=== PATIENT | female | born 1945 | race Caucasian/White ===

== ENCOUNTER 2024-10-22 10:53 | Observation (INO) ==
--- NOTE | 2024-10-22 11:20 | Emergency Department Note ---
HPI - Abdominal Pain General Chief Complaint: Abdominal Pain Stated Complaint: constipation Time Seen by Provider: 10/22/24 11:11 Source: patient Mode of arrival: walk-in Limitations: no limitations History of Present Illness HPI narrative: This is a 79 year old female patient that presents to the ER with c/o diffuse abdominal pain with not able to have a BM in 9 days. Per patient she has tried multiple items for constipation without results. Patient denies any chest pain, back pain, SOB, numbness, tingling, weakness or N/V MD elicited complaint: abdominal pain Pertinent past history: constipation Onset (ago): day(s) (9) Pain Consistency: constant Location: diffuse Severity: mild Quality: aching Radiation: none Migration to: no migration Exacerbating factors: nothing Relieving factors: nothing Associated symptoms: nausea and constipation Related Data Home Medications Medication Instructions Recorded Confirmed albuterol sulfate 90 mcg/actuation 1 puff inhalation Q6H PRN 04/14/24 04/14/24 aerosol inhaler shortness of breath or wheezing ergocalciferol (vitamin D2) 1,250 1,250 mcg PO .WEEKLY 04/14/24 04/14/24 mcg (50,000 unit) capsule levothyroxine 100 mcg tablet 100 mcg PO DAILY 04/14/24 04/14/24 metoprolol succinate 25 mg 25 mg PO DAILY 04/14/24 04/14/24 tablet,extended release 24 hr simvastatin 20 mg tablet 20 mg PO DAILY 04/14/24 04/14/24 zolpidem 10 mg tablet 10 mg PO DAILY 04/14/24 04/14/24 Allergies Allergy/AdvReac Type Severity Reaction Status Date / Time denosumab (From Prolia) Allergy Verified 10/22/24 11:22 Sulfa (Sulfonamide Allergy Verified 10/22/24 11:22 Antibiotics) tramadol Allergy Verified 10/22/24 11:22 COVID-19 (SARS-CoV-2) AdvReac Severe Verified 10/22/24 11:22 vaccine, marisa Influenza Virus Vaccines AdvReac Severe Verified 10/22/24 11:22 vaccine adjuvant system, AdvReac Severe Verified 10/22/24 11:22 [id number] lipo (From Shingrix (PF)) varicella-zoster virus AdvReac Severe Verified 10/22/24 11:22 glycoprotein (From Shingrix (PF)) Review of Systems Status of ROS 10 or more systems reviewed and unremark able except as noted in history and below Constitutional Denies: fever, chills, change in weight, fatigue, malaise, night sweats or change in sleep pattern Eyes Denies: change in vision, blurry vision, blind spots, light sensitivity or eye discomfort Ears, nose, mouth, and throat Denies: throat pain, neck pain, throat swelling, difficulty swallowing, hoarseness, mouth pain or swelling of lips/tongue Cardiovascular Denies: chest pain, palpitations, edema, swelling of feet/ankles, lightheadedness, shortness of breath with exertion or shortness of breath when lying down Respiratory Denies: shortness of breath, cough, wheezing, stridor, pain on inspiration or change in phlegm color Gastrointestinal Reports: abdominal pain, nausea and constipation; Denies: vomiting, coffee grounds in vomit, heartburn, diarrhea, bloating, belching or excessive passing of gas Genitourinary Denies: painful urination, urinary frequency, urinary urgency, urinary incontinence, blood in urine or difficulty voiding Musculoskeletal Denies: back pain, neck pain, extremity pain, extremity swelling, joint pain, limited range of motion, joint swelling or muscle cramps Integumentary/Breast Denies: rash, itching, redness, skin pain, skin tenderness, skin swelling, sores, new lesion or changing lesion Neurological Denies: headache, numbness in extremities, weakness in extremities, lack of coordination or dizziness Psychiatric Denies: anxiety, mood swings, panic attacks, change in sleep pattern, hopelessness or loss of interest Endocrine Denies: excessive urination, excessive thirst, fatigue, cold intolerance or excessive sweating Hematologic/Lymphatic Denies: easy bruising or easy bleeding Allergic/Immunologic Denies: hives, throat swelling, tongue swelling, facial swelling, wheezing or itchy eyes PFSH PFS Medical History Hypothyroidism Kidney stones GERD (gastroesophageal reflux disease) Hypertension Hyperlipemia Presence of Watchman left atrial appendage closure device Atrial fibrillation Guillain Lester syndrome Surgical History H/O: hysterectomy Social History Smoking status: never smoker Within the past year, how often did you have a drink containing alcohol: never Within the past year, how often did you have six or more drinks on one occasion: never Score interpretation: A score less than 3 is consistent with normal alcohol consumption. Non-prescribed substance use: denies use What is your current living situation: I presently have a place to live Problems where you live: no known problems Feel stressed/tense/nervous/anxious/difficulty sleeping: not at all Due to disability, difficulty making decisions: No Exam Constitutional: normal general appearance, no apparent distress and average body habitus Vital Signs - 24 hr 10/22/24 11:00 Temperature 97.8 F Pulse Rate 97 H Respiratory Rate 18 Blood Pressure 116/89 Pulse Oximetry 96 Oxygen Delivery Me thod Room Air HENMT: normocephalic, head/scalp atraumatic, hearing grossly normal bilaterally, external ears normal, nasal mucous membranes normal, external nose normal, oral mucous membranes normal and oropharynx normal Eyes: PERRL, EOMs intact bilaterally, conjunctivae normal and no scleral icterus Neck/C-Spine: visual inspection normal and trachea midline Lymph: no lymphadenopathy noted Chest: inspection of chest normal Respiratory: breath sounds equal bilaterally, normal respiratory effort, clear to auscultation bilaterally, no wheezes, no rales, no retractions, no use of accessory muscles and chest percussion normal Cardiovascular: normal heart rate noted, regular rhythm noted, no gallop, no rub, no murmur, no JVD, no clicks, peripheral pulses 2+ throughout, no bruits noted and no additional abnormal heart sounds Gastrointestinal: abdomen normal to inspection, abdomen soft to palpation, tender to palpation (diffuse tenderness), nontender to percussion, nondistended, normoactive bowel sounds, no hepatosplenomegaly, no masses, no pulsatile mass, no ascites, no hernia and rectal exam abnormal (hemorrhoids) (internal) and (fecal impaction) (manually disimpacted received moderate hard stool. Patient tolerated without difficulty) Genitourinary: no CVA tenderness Back/Pelvis: spine normal to inspection Extremities: normal to inspection, normal to palpation, no tenderness, full ROM, no joint enlargement and no deformity Neurology: no movement abnormality noted, no focal motor deficit noted, no sensory deficits noted, speech normal, no fasciculations noted and GCS normal Psychiatry: mental status grossly normal, oriented x3, thought process normal, cooperative and affect normal Skin: skin color normal Course Course Hospital Course: 1458: patient unable to keep the soap suds enema in. spoke to Dr Malhotra about patient and she accepted her to the medical floor and wants patient to get 5 packs of Miralax on the medical floor and then a soap suds enema 4 hrs later. VSS, no s/s of acute distress noted Vital Signs Vital signs: Vital Signs Temperature 97.8 F 10/22/24 11:00 Pulse Rate 97 H 10/22/24 11:00 Respiratory Rate 18 10/22/24 11:00 Blood Pressure 116/89 10/22/24 11:00 Pulse Oximetry 96 10/22/24 11:00 Oxygen Delivery Method Room Air 10/22/24 11:00 Temperature 97.8 F 10/22/24 11:00 Pulse Rate 97 H 10/22/24 11:00 Respiratory Rate 18 10/22/24 11:00 Blood Pressure 116/89 10/22/24 11:00 Pulse Oximetry 96 10/22/24 11:00 Oxygen Delivery Method Room Air 10/22/24 11:00 MDM - Abdominal Pain Differential Diagnosis Differential diagnosis: Likely abdominal pain Medical Records Attestation: I reviewed the patient's medical records. Lab Data Attestation: I reviewed the patient's lab results. Labs: Lab Results 10/22/24 Range/Units 11:20 WBC 7.2 (4.3-9.3) K/uL RBC 4.5 (4.00-5.50) M/uL Hgb 13.7 (12.5-15.8) gm/dL Hct 39.8 (35.9-46.7) % MCV 87.9 (81.0-93.7) fl MCH 30.2 (27.6-32.2) pg MCHC 34.4 (33.1-35.3) g/dl RDW 13.7 (11.4-14.2) % Plt Count 274 (152-353) K/uL MPV 8.8 (6.9-10.8) fl Gran % 65.9 (47.8-71.3) % Lymph % (Auto) 22.9 (20.0-43.0) % [place] % (Auto) 10.0 H (3.6-9.8) % Eos % (Auto) 0.3 L (0.4-2.8) % Baso % (Auto) 0.9 H (0.1-0.85) Lymph # (Auto) 1.6 (1.1-3.1) [place] # (Auto) 0.7 L (1.1-3.1) Eos # (Auto) 0.0 (0.0-0.2) Baso # (Auto) 0.1 (0.0-0.1) Absolute Gran (auto) 4.7 (2.3-6.0) Sodium 133 L (136-145) mmol/L Potassium 3.3 L (3.6-5.2) mmol/L Chloride 95.0 L (98-107) mmol/L Carbon Dioxide 33 H (21-32) mmol/L Anion Gap 5.0 (4-14) mEq/L BUN 23 H (7-18) mg/dL Creatinine 0.7 (0.6-1.3) mg/dL Estimated GFR 89.0 (>59.9) Glucose 180 H (70-110) mg/dL Calcium 8.4 L (8.5-10.1) mg/dL Total Bilirubin 1.00 (0.0-1.0) mg/dL AST 10 L (15-37) U/L ALT 11 L (30-65) U/L Alkaline Phosphatase 149 H (50-136) U/L Troponin I High Sens 9.00 (4.0-60.4) ng/L Total Protein 7.1 (6.4-8.2) g/dL Albumin 3.8 (3.4-5.0) g/dL Lipase 26.0 (16.0-77.0) U/L Imaging Data Imaging ordered: CT scan - abdomen Attestation: I have reviewed the pertinent imaging results. ECG Data Attestation: I have reviewed the pertinent ECG results. Discharge Plan Discharge Patient Disposition: Admitted As Observation Condition: Stable Clinical Impression: Constipation, Fecal impaction Time of Disposition: 15:00
[2024-10-22] MEDS ORDERED: ONDANSETRON HCL/PF 4 MG/2 ML VIAL ONE (11:22)
[2024-10-22] MEDS: ONDANSETRON HCL/PF 4 MG/2 ML VIAL INJ STA (11:22)
[2024-10-22 11:28] LABS: Basophils #(Absolute) Auto 0.1 (0.0-0.1); Basophils%(Percent) Auto 0.9 (0.1-0.85); Eosinophils%(Percent) Auto 0.3 % (0.4-2.8); Granulocytes % - Auto 65.9 % (47.8-71.3); Granulocytes#(Absolute)- Auto 4.7 (2.3-6.0); Hematocrit 39.8 % (35.9-46.7); Mean Corpuscular Volume 87.9 fl (81.0-93.7); Monocytes #(Absolute)- Auto 0.7 (1.1-3.1); Platelet Count 274 K/uL (152-353); White Blood Count 7.2 K/uL (4.3-9.3)
[2024-10-22 11:38] LABS: Potassium 3.3 mmol/L (3.6-5.2)
[2024-10-22] MEDS ORDERED: POTASSIUM CHLORIDE 20 MEQ TAB.ER.PRT PO SCH (12:15)
[2024-10-22] MEDS ORDERED: POTASSIUM CHLORIDE 20 MEQ TAB.ER.PRT PO ONE (12:15)
[2024-10-22] MEDS: POTASSIUM CHLORIDE 20 MEQ TAB.ER.PRT PO ONE (12:17)
[2024-10-22] MEDS ORDERED: polyethylene glycoL 3350 17 GM POWD.PACK ONE (15:27)
[2024-10-22] MEDS: polyethylene glycoL 3350 17 GM POWD.PACK PO STA (15:29)
[2024-10-22] MEDS ORDERED: MAGNESIUM, ALUMINUM HYDROXIDE 30 ML ORAL.SUSP PO PRN (18:38)
[2024-10-22] MEDS ORDERED: bisacodyL 10 MG SUPP.RECT PR PRN (18:38)
[2024-10-22] MEDS: SIMVASTATIN 10 MG TABLET PO SCH (21:07)
[2024-10-22] MEDS: ZOLPIDEM TARTRATE 10 MG TABLET PO PRN (22:58)
[2024-10-23 02:11] LABS: Urine Appearance CLEAR (CLEAR); Urine Blood NEGATIVE (NEG - TRACE); Urine Color YELLOW (STRAW/YELL.); Urine Urobilinogen Normal (NORMAL)
[2024-10-23 06:58] LABS: Basophils%(Percent) Auto 0.6 (0.1-0.85); Eosinophils#(Absolute)Auto 0.1 (0.0-0.2); Eosinophils%(Percent) Auto 1.3 % (0.4-2.8); Granulocytes % - Auto 55.9 % (47.8-71.3); Granulocytes#(Absolute)- Auto 3.7 (2.3-6.0); Hematocrit 36.1 % (35.9-46.7); Monocytes #(Absolute)- Auto 0.7 (1.1-3.1); Monocytes %(Percent)- Auto 10.9 % (3.6-9.8); Platelet Count 251 K/uL (152-353); White Blood Count 6.7 K/uL (4.3-9.3)
[2024-10-23 07:15] LABS: Potassium 3.1 mmol/L (3.6-5.2)
[2024-10-23] MEDS ORDERED: POTASSIUM CHLORIDE IN WATER 10 MEQ/100 ML PIGGYBACK IV SCH (08:15)
[2024-10-23] MEDS: LEVOTHYROXINE SODIUM 100 MCG TABLET PO SCH (09:07)
[2024-10-23] MEDS: METOPROLOL SUCCINATE 25 MG TAB.ER.24H PO SCH (09:07)
[2024-10-23] MEDS: L. ACIDOPHILUS/L.BULGARICU 1 GM GRAN.PACK PO SCH (09:07)
[2024-10-23] MEDS: polyethylene glycoL 3350 17 GM POWD.PACK PO SCH (09:07)
[2024-10-23] MEDS: PANTOPRAZOLE SODIUM 40 MG TABLET.DR PO SCH (09:07)
[2024-10-23] MEDS: ENOXAPARIN SODIUM 40 MG/0.4 ML SYRINGE SUBQ SCH (09:07)
[2024-10-23] MEDS: POTASSIUM CHLORIDE 20 MEQ TAB.ER.PRT PO ONE (09:08)
[2024-10-23] MEDS: POTASSIUM CL 20 MEQ/100 ML SOL 20 MEQ/100 ML PIGGYBACK IV ONE (09:23)
[2024-10-23] MEDS: HYDROCORTISONE ACETATE 25 MG SUPP.RECT PR SCH (13:30)
[2024-10-23] MEDS: 0.9 % SODIUM CHLORIDE 250 ML IV ONE (13:32)
--- NOTE | 2024-10-23 13:59 | Short Stay Summary ---
H&P: HPI History of Present Illness Chief complaint: constipation Narrative: This is a 79 year old female patient that presents to the ER with c/o diffuse abdominal pain with not able to have a BM in 9 days. Per patient she has tried multiple items for constipation without results. Patient denies any chest pain, back pain, SOB, numbness, tingling, weakness or N/V. Admitted patient to med/surg for further observation and treatment. Review of Systems Status of ROS 10 or more systems reviewed and unremark able except as noted in history and below Constitutional Denies: fever, chills, change in weight, fatigue, malaise, night sweats or change in sleep pattern Eyes Denies: change in vision, blurry vision, blind spots, light sensitivity or eye discomfort Ears, nose, mouth, and throat Denies: throat pain, neck pain, throat swelling, difficulty swallowing, hoarseness, mouth pain or swelling of lips/tongue Cardiovascular Denies: chest pain, palpitations, edema, swelling of feet/ankles, lightheadedness, shortness of breath with exertion or shortness of breath when lying down Respiratory Denies: shortness of breath, cough, wheezing, stridor, pain on inspiration or change in phlegm color Gastrointestinal Reports: abdominal pain, nausea and constipation; Denies: vomiting, coffee grounds in vomit, heartburn, diarrhea, bloating, belching, excessive passing of gas or difficulty swallowing Genitourinary Denies: painful urination, urinary frequency, urinary urgency, urinary incontinence, blood in urine or difficulty voiding Musculoskeletal Denies: back pain, neck pain, extremity pain, extremity swelling, joint pain, limited range of motion, joint swelling or muscle cramps Integumentary/Breast Denies: rash, itching, redness, skin pain, skin tenderness, skin swelling, sores, new lesion or changing lesion Neurological Reports: behavioral changes and difficulty communicating thoughts; Denies: headache, numbness in extremities, weakness in extremities, lack of coordination, dizziness, vertigo, confusion or slurred speech Psychiatric Denies: anxiety, mood swings, panic attacks, change in sleep pattern, hopelessness or loss of interest Endocrine Denies: excessive urination, excessive thirst, fatigue, cold intolerance or excessive sweating Hematologic/Lymphatic Denies: easy bruising, easy bleeding or enlarged lymph nodes Allergic/Immunologic Denies: hives, throat swelling, tongue swelling, facial swelling, wheezing or itchy eyes PFSH PFSH Medical History (Updated 10/23/24 @ 15:21 by Meagan Malhotra DO) Hypothyroidism Kidney stones GERD (gastroesophageal reflux disease) Hypertension Hyperlipemia Presence of Watchman left atrial appendage closure device Atrial fibrillation Guillain Lester syndrome Surgical History H/O: hysterectomy Social History Smoking status: never smoker Within the past year, how often did you have a drink containing alcohol: never Within the past year, how often did you have six or more drinks on one occasion: never Score interpretation: A score less than 3 is consistent with normal alcohol consumption. Non-prescribed substance use: denies use What is your current living situation: I presently have a place to live Problems where you live: no known problems Highest level of school completed/degree received: College Feel stressed/tense/nervous/anxious/difficulty sleeping: not at all Due to disability, difficulty making decisions: No Meds Home Medications and Allergies Home Medications Medication Instructions Recorded Confirmed Type albuterol sulfate 90 mcg/actuation 1 puff inhalation Q6H PRN 04/14/24 04/14/24 History aerosol inhaler shortness of breath or wheezing ergocalciferol (vitamin D2) 1,250 1,250 mcg PO .WEEKLY 04/14/24 04/14/24 History mcg (50,000 unit) capsule levothyroxine 100 mcg tablet 100 mcg PO DAILY 04/14/24 04/14/24 History metoprolol succinate 25 mg 25 mg PO DAILY 04/14/24 04/14/24 History tablet,extended release 24 hr simvastatin 20 mg tablet 20 mg PO DAILY 04/14/24 04/14/24 History zolpidem 10 mg tablet 10 mg PO DAILY 04/14/24 04/14/24 History Allergies Allergy/AdvReac Type Severity Reaction Status Date / Time denosumab (From Prolia) Allergy Verified 10/22/24 11:22 Sulfa (Sulfonamide Allergy Verified 10/22/24 11:22 Antibiotics) tramadol Allergy Verified 10/22/24 11:22 COVID-19 (SARS-CoV-2) AdvReac Severe Verified 10/22/24 11:22 vaccine, marisa Influenza Virus Vaccines AdvReac Severe Verified 10/22/24 11:22 vaccine adjuvant system, AdvReac Severe Verified 10/22/24 11:22 [id number] lipo (From Shingrix (PF)) varicella-zoster virus AdvReac Severe Verified 10/22/24 11:22 glycoprotein (From Shingrix (PF)) Exam Exam: Patient in low lutz's position upon entering room for exam. Constitutional: normal general appearance, no apparent distress, average body habitus, limitations noted (physical limitations) and alert Vital Signs - 24 hr 10/22/24 15:00 10/22/24 16:24 10/22/24 18:00 Temperature 97.8 F Pulse Rate 93 H 84 Pulse Rate [Bilate ral] Respiratory Rate 18 18 Blood Pressure 136/88 144/86 Blood Pressure [Ri ght Arm] Pulse Oximetry 98 98 Oxygen Delivery Me thod Room Air Room Air 10/22/24 20:00 10/22/24 23:44 10/23/24 03:43 Temperature 99.9 F H 97.9 F 98.4 F Pulse Rate Pulse Rate [Bilate ral] 74 81 87 Respiratory Rate 22 19 18 Blood Pressure Blood Pressure [Ri ght Arm] 139/54 136/55 118/64 Pulse Oximetry 93 L 94 L 93 L Oxygen Delivery Me thod Room Air Room Air Room Air 10/23/24 08:00 10/23/24 12:00 Temperature 98.3 F 98.2 F Pulse Rate Pulse Rate [Bilate ral] 81 85 Respiratory Rate 19 19 Blood Pressure Blood Pressure [Ri ght Arm] 148/67 107/64 Pulse Oximetry 95 93 L Oxygen Delivery Me thod Nasal Cannula Room Air HENMT: normocephalic, head/scalp atraumatic, hearing grossly normal bilaterally, external ears normal, nasal mucous membranes normal, external nose normal, oral mucous membranes normal and oropharynx normal Eyes: PERRL, EOMs intact bilaterally, conjunctivae normal and no scleral icterus Neck/C-Spine: visual inspection normal and trachea midline Lymph: no lymphadenopathy noted Chest: inspection of chest normal Respiratory: breath sounds equal bilaterally, normal respiratory effort, clear to auscultation bilaterally, no wheezes, no rales, no retractions, no use of accessory muscles and chest percussion normal Cardiovascular: normal heart rate noted, regular rhythm noted, no gallop, no rub, no murmur, no JVD, no clicks, peripheral pulses 2+ throughout, no bruits noted and no additional abnormal heart sounds Gastrointestinal: abdomen normal to inspection, abdomen soft to palpation, nontender to palpation, nontender to percussion, nondistended, normoactive bowel sounds, no hepatosplenomegaly, no masses, no pulsatile mass, no ascites, no h ernia and rectal exam abnormal (hemorrhoids) (internal) and (anal fissures) Genitourinary: no CVA tenderness Back/Pelvis: spine normal to inspection Extremities: normal to inspection, normal to palpation, no tenderness, full ROM, no joint enlargement and no deformity Neurology: no movement abnormality noted, no focal motor deficit noted, no sensory deficits noted, speech normal, no fasciculations noted and GCS normal Psychiatry: mental status grossly normal, oriented x3, thought process normal, cooperative and affect normal Skin: skin color normal and skin turgor normal Assessment and Plan Assessment and Plan (1) Fecal impaction: Code(s): K56.41 - Fecal impaction (2) Abdominal pain: Qualifiers: Abdominal location: lower abdomen, unspecified Qualified Code(s): R10.30 - Lower abdominal pain, unspecified Code(s): R10.9 - Unspecified abdominal pain (3) Constipation: Qualifiers: Constipation type: unspecified constipation type Qualified Code(s): K59.00 - Constipation, unspecified Code(s): K59.00 - Constipation, unspecified (4) Bowel obstruction: Qualifiers: Intestinal obstruction type: fecal impaction Qualified Code(s): K56.41 - Fecal impaction Code(s): K56.609 - Unspecified intestinal obstruction, unspecified as to partial versus complete obstruction (5) Anal fissure: Code(s): K60.2 - Anal fissure, unspecified (6) Hypertension: Qualifiers: Hypertension type: primary hypertension Qualified Code(s): I10 - Essential (primary) hypertension Code(s): I10 - Essential (primary) hypertension (7) GERD (gastroesophageal reflux disease): Qualifiers: Esophagitis presence: with esophagitis Esophagitis bleeding: without hemorrhage Qualified Code(s): K21.00 - Gastro-esophageal reflux disease with esophagitis, without bleeding Code(s): K21.9 - Gastro-esophageal reflux disease without esophagitis (8) Kidney stones: Code(s): N20.0 - Calculus of kidney (9) Hypothyroidism: Qualifiers: Hypothyroidism type: acquired Qualified Code(s): E03.9 - Hypothyroidism, unspecified Code(s): E03.9 - Hypothyroidism, unspecified (10) Atrial fibrillation: Qualifiers: Atrial fibrillation type: paroxysmal Qualified Code(s): I48.0 - Paroxysmal atrial fibrillation Code(s): I48.91 - Unspecified atrial fibrillation (11) 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 (12) Hyperlipemia: Qualifiers: Hyperlipidemia type: mixed hyperlipidemia Qualified Code(s): E78.2 - Mixed hyperlipidemia Code(s): E78.5 - Hyperlipidemia, unspecified Plan Levothyroxine Sodium 100 mcg PO DAILY Metoprolol Succinate 25 mg PO DAILY Simvastatin 20 mg PO BEDTIME Enoxaparin Sodium 40 mg PO DAILY Pantoprazole Sodium 40 mg PO DAILY Lactobacillus Acidophilus 1 gm PO DAILY Polyethylene Glycol 17 gm PO DAILY Hydrocortisone Acetate 25 mg TN Q6H Zolpidem Tartrate 10 mg PO BEDTIME PRN Acetaminophen 500 mg PO Q6H PRN Magnesium Hydroxide 30 ml PO DAILY PRN Bisacodyl 10 mg TN DAILY PRN Discharge home for self care tomorrow if she continues to have BM's without any issues Results Labs Labs: CBC 10/23/24 Range/Units 06:33 WBC 6.7 (4.3-9.3) K/uL RBC 4.1 (4.00-5.50) M/uL Hgb 12.6 (12.5-15.8) gm/dL Hct 36.1 (35.9-46.7) % Plt Count 251 (152-353) K/uL Gran % 55.9 (47.8-71.3) % Lymph % (Auto) 31.3 (20.0-43.0) % [place] % (Auto) 10.9 H (3.6-9.8) % Eos % (Auto) 1.3 (0.4-2.8) % Baso % (Auto) 0.6 (0.1-0.85) Lymph # (Auto) 2.1 (1.1-3.1) [place] # (Auto) 0.7 L (1.1-3.1) Eos # (Auto) 0.1 (0.0-0.2) Baso # (Auto) 0.0 (0.0-0.1) Absolute Gran (auto) 3.7 (2.3-6.0) CMP 10/23/24 06:33 Sodium 134 L Potassium 3.1 L Chloride 97.0 L Carbon Dioxide 29 BUN 16 Creatinine 0.6 Glucose 133 H Calcium 8.5 Liver Function 10/23/24 Range/Units 06:33 Total Bilirubin 0.99 (0.0-1.0) mg/dL AST 14 L (15-37) U/L ALT 14 L (30-65) U/L Alkaline Phosphatase 124 (50-136) U/L Albumin 3.5 (3.4-5.0) g/dL Urine 10/22/24 00:45 Urine Color Yellow Urine Appearance Clear Ur Specific [place] 1.010 Urine Protein Negative Urine Glucose (UA) Normal Pulse Oximetry Attestation: I have reviewed the pertinent pulse oximetry results. ECG Attestation: I have reviewed the pertinent ECG results. Prior ECG tracings: available for review Imaging Imaging ordered: CT scan - abdomen Radiologist's impression: CT ABDOMEN AND PELVIS WITH CONTRAST Date of Service: 10/22/24 HISTORY: abdomen pain, constipation; COMPARISON: CT dated 04/14/2024. TECHNIQUE: Axial CT images were obtained through the abdomen and pelvis after the intravenous administration of contrast. Coronal and sagittal reformatted images were included. Informed written consent was obtained prior to contrast administration. All CT scans at this facility use dose modulation, iterative reconstruction, and/or weight based dosing when appropriate to reduce radiation dose to as low as reasonably achievable. FINDINGS: Clear lung bases. Unremarkable liver, gallbladder, spleen, and adrenals. Atrophic pancreas. No biliary dilatation. Kidneys enhance symmetrically and there is no hydronephrosis or perinephric stranding. Moderate aortoiliac atherosclerosis without aneurysm. No abnormally distended small bowel loops or evidence of obstruction. Moderate formed stool throughout the sigmoid colon and rectum with fluid throughout the proximal colon. Chronic pelvic floor insufficiency with rectal and vaginal prolapse. Nondistended urinary bladder. No free pelvic fluid. No acute osseous findings. Osteopenia. Mild lumbar spondylosis. IMPRESSION: 1. Moderate sigmoid colon and rectal stool burden. Proximal colon is fluid- filled. No abnormally distended bowel loops or evidence of obstruction. 2. Chronic pelvic floor insufficiency with rectal and vaginal prolapse. DS: Providers Provider Date of admission: 10/22/24 17:24 Primary care physician: HOWIE Villasenor Admitting clinician: Verna Eaton Attending physician on admission: Meagan Malhotra Attending physician on discharge: Meagan Malhotra Discharging clinician: Meagan Malhotra Anticipated date of discharge: 10/23/24 DS: Summary Hospital Course Hospital Course: This is a 79 year old female patient that presents to the ER with c/o diffuse abdominal pain with not able to have a BM in 9 days. Per patient she has tried m ultiple items for constipation without results. Patient denies any chest pain, back pain, SOB, numbness, tingling, weakness or N/V. Admitted patient to med/surg for further observation and treatment. Patient received a manual disimpaction while in ER. Patient was able to have 3 bowel movements since being admitted to the floor. Patient reports she is feeling so much better and no in any abdominal pain. Patient states she feels some discomfort in rectum. After physical exam, patient was found to have an anal fissure. Orders were started for treatment. Patient is ready to discharge home for self care. Follow up appointment with PCP in 5-7 days of discharge. Status at Discharge Overall status at discharge: patient is back to baseline Time Spent with Patient Time attestation: Total time spent providing and/or coordinating discharge services: Discharge Plan Discharge Condition: Stable Discharge Medications: No Action albuterol sulfate 90 mcg/actuation HFA aerosol inhaler 1 puff INHALATION Q6H PRN (Reason: shortness of breath or wheezing) Patient Comments: INHALE ONE PUFF BY MOUTH EVERY 4 TO 6 HOURS ergocalciferol (vitamin D2) 1,250 mcg (50,000 unit) capsule 1,250 mcg PO .WEEKLY Patient Comments: TAKE ONE CAPSULE BY MOUTH EVERY WEEK levothyroxine 100 mcg tablet 100 mcg PO DAILY Patient Comments: Take 1 tablet by mouth every morning with water at least 30 to 60 minutes before any other medication, food, or drink. metoprolol succinate 25 mg tablet extended release 24 hr 25 mg PO DAILY Patient Comments: TAKE ONE TABLET BY MOUTH EVERY DAY simvastatin 20 mg tablet 20 mg PO DAILY Patient Comments: TAKE ONE TABLET BY MOUTH EVERY EVENING zolpidem 10 mg tablet 10 mg PO DAILY Patient Comments: TAKE ONE TABLET BY MOUTH AT BEDTIME NEEDED Hospital Course: This is a 79 year old female patient that presents to the ER with c/o diffuse abdominal pain with not able to have a BM in 9 days. Per patient she has tried multiple items for constipation without results. Patient denies any chest pain, back pain, SOB, numbness, tingling, weakness or N/V. Admitted patient to med/surg for further observation and treatment. Patient received a manual disimpaction while in ER. Patient was able to have 3 bowel movements since being admitted to the floor. Patient reports she is feeling so much better and no in any abdominal pain. Patient states she feels some discomfort in rectum. After physical exam, patient was found to have an anal fissure. Orders were started for treatment. Patient is ready to discharge home for self care. Follow up appointment with PCP in 5-7 days of discharge. Print Language: Ivorian Follow-Ups: Leoncio South PA [Primary Care Provider] - 10/30/24 1:45 pm
[2024-10-23] MEDS: polyethylene glycoL 3350 17 GM POWD.PACK PO ONE (18:42)
[2024-10-23] MEDS: ACETAMINOPHEN 500 MG TABLET PO PRN (20:36)
[2024-10-24 05:16] LABS: Basophils #(Absolute) Auto 0.1 (0.0-0.1); Basophils%(Percent) Auto 0.9 (0.1-0.85); Eosinophils#(Absolute)Auto 0.1 (0.0-0.2); Eosinophils%(Percent) Auto 1.4 % (0.4-2.8); Granulocytes % - Auto 55.2 % (47.8-71.3); Granulocytes#(Absolute)- Auto 3.4 (2.3-6.0); Hematocrit 35.1 % (35.9-46.7); Monocytes #(Absolute)- Auto 0.6 (1.1-3.1); Monocytes %(Percent)- Auto 10.2 % (3.6-9.8); Platelet Count 226 K/uL (152-353); White Blood Count 6.1 K/uL (4.3-9.3)
[2024-10-24 07:47] LABS: Potassium 3.8 mmol/L (3.6-5.2)
[2024-10-24 08:33] VITALS: BP 119/65; PULSE 71; RESP 20; TEMP 97.6
--- NOTE | 2024-10-24 11:01 | Progress Note ---
Progress Note: Subjective Subjective Interval history: Patient ready for discharge home this a.m. as expected. Exam Exam: Patient in low lutz's position upon entering room for exam. Constitutional: normal general appearance, no apparent distress, average body habitus, limitations noted (physical limitations) and alert Vital Signs - 24 hr 10/23/24 12:00 10/23/24 16:00 10/23/24 19:32 Temperature 98.2 F 97.7 F 97.9 F Pulse Rate [Bilate ral] 85 74 74 Respiratory Rate 19 19 18 Blood Pressure [Ri ght Arm] 107/64 124/57 101/76 Pulse Oximetry 93 L 93 L 94 L Oxygen Delivery Me thod Room Air Room Air Room Air 10/23/24 23:41 10/24/24 04:00 10/24/24 08:00 Temperature 98.2 F 97.9 F 97.6 F Pulse Rate [Bilate ral] 76 79 71 Respiratory Rate 18 18 20 Blood Pressure [Ri ght Arm] 129/58 136/62 119/65 Pulse Oximetry 97 95 94 L Oxygen Delivery Me thod Room Air Room Air Room Air HENMT: normocephalic, head/scalp atraumatic, hearing grossly normal bilaterally, external ears normal, nasal mucous membranes normal, external nose normal, oral mucous membranes normal and oropharynx normal Eyes: PERRL, EOMs intact bilaterally, conjunctivae normal and no scleral icterus Neck/C-Spine: visual inspection normal and trachea midline Lymph: no lymphadenopathy noted Chest: inspection of chest normal Respiratory: breath sounds equal bilaterally, normal respiratory effort, clear to auscultation bilaterally, no wheezes, no rales, no retractions, no use of accessory muscles and chest percussion normal Cardiovascular: normal heart rate noted, regular rhythm noted, no gallop, no rub, no murmur, no JVD, no clicks, peripheral pulses 2+ throughout, no bruits noted and no additional abnormal heart sounds Gastrointestinal: abdomen normal to inspection, abdomen soft to palpation, nontender to palpation, nontender to percussion, nondistended, normoactive bowel sounds, no hepatosplenomegaly, no masses, no pulsatile mass, no ascites, no hernia and rectal exam abnormal (hemorrhoids) (internal) and (anal fissures) Genitourinary: no CVA tenderness Back/Pelvis: spine normal to inspection Extremities: normal to inspection, normal to palpation, no tenderness, full ROM, no joint enlargement and no deformity Neurology: no movement abnormality noted, no focal motor deficit noted, no sensory deficits noted, speech normal, no fasciculations noted and GCS normal Psychiatry: mental status grossly normal, oriented x3, thought process normal, cooperative and affect normal Skin: skin color normal and skin turgor normal Progress Note: Objective Labs Labs: CBC 10/24/24 Range/Units 05:15 WBC 6.1 (4.3-9.3) K/uL RBC 4.0 (4.00-5.50) M/uL Hgb 12.3 L (12.5-15.8) gm/dL Hct 35.1 L (35.9-46.7) % Plt Count 226 (152-353) K/uL Gran % 55.2 (47.8-71.3) % Lymph % (Auto) 32.3 (20.0-43.0) % [place] % (Auto) 10.2 H (3.6-9.8) % Eos % (Auto) 1.4 (0.4-2.8) % Baso % (Auto) 0.9 H (0.1-0.85) Lymph # (Auto) 2.0 (1.1-3.1) [place] # (Auto) 0.6 L (1.1-3.1) Eos # (Auto) 0.1 (0.0-0.2) Baso # (Auto) 0.1 (0.0-0.1) Absolute Gran (auto) 3.4 (2.3-6.0) CMP 10/24/24 05:15 Sodium 134 L Potassium 3.8 Chloride 101.0 Carbon Dioxide 27 BUN 16 Creatinine 0.6 Glucose 134 H Calcium 8.5 Liver Function 10/24/24 Range/Units 05:15 Total Bilirubin 0.73 (0.0-1.0) mg/dL AST 13 L (15-37) U/L ALT 14 L (30-65) U/L Alkaline Phosphatase 140 H (50-136) U/L Albumin 3.2 L (3.4-5.0) g/dL Urine 10/22/24 00:45 Urine Color Yellow Urine Appearance Clear Ur Specific [place] 1.010 Urine Protein Negative Urine Glucose (UA) Normal Imaging CT scan - abdomen: Radiologist's impression: CT ABDOMEN AND PELVIS WITH CONTRAST Date of Service: 10/22/24 HISTORY: abdomen pain, constipation; COMPARISON: CT dated 04/14/2024. TECHNIQUE: Axial CT images were obtained through the abdomen and pelvis after the intravenous administration of contrast. Coronal and sagittal reformatted images were included. Informed written consent was obtained prior to contrast administration. All CT scans at this facility use dose modulation, iterative reconstruction, and/or weight based dosing when appropriate to reduce radiation dose to as low as reasonably achievable. FINDINGS: Clear lung bases. Unremarkable liver, gallbladder, spleen, and adrenals. Atrophic pancreas. No biliary dilatation. Kidneys enhance symmetrically and there is no hydronephrosis or perinephric stranding. Moderate aortoiliac atherosclerosis without aneurysm. No abnormally distended small bowel loops or evidence of obstruction. Moderate formed stool throughout the sigmoid colon and rectum with fluid throughout the proximal colon. Chronic pelvic floor insufficiency with rectal and vaginal prolapse. Nondistended urinary bladder. No free pelvic fluid. No acute osseous findings. Osteopenia. Mild lumbar spondylosis. IMPRESSION: 1. Moderate sigmoid colon and rectal stool burden. Proximal colon is fluid- filled. No abnormally distended bowel loops or evidence of obstruction. 2. Chronic pelvic floor insufficiency with rectal and vaginal prolapse. Progress Note: A&P Assessment and Plan (1) Fecal impaction: (2) Abdominal pain: Qualifiers: Abdominal location: lower abdomen, unspecified Qualified Code(s): R10.30 - Lower abdominal pain, unspecified (3) Constipation: Qualifiers: Constipation type: unspecified constipation type Qualified Code(s): K59.00 - Constipation, unspecified (4) Bowel obstruction: Qualifiers: Intestinal obstruction type: fecal impaction Qualified Code(s): K56.41 - Fecal impaction (5) Anal fissure: (6) Hypertension: Qualifiers: Hypertension type: primary hypertension Qualified Code(s): I10 - Essential (primary) hypertension (7) GERD (gastroesophageal reflux disease): Qualifiers: Esophagitis bleeding: without hemorrhage Esophagitis presence: with esophagitis Qualified Code(s): K21.00 - Gastro-esophageal reflux disease with esophagitis, without bleeding (8) Kidney stones: (9) Hypothyroidism: Qualifiers: Hypothyroidism type: acquired Qualified Code(s): E03.9 - Hypothyroidism, unspecified (10) Atrial fibrillation: Qualifiers: Atrial fibrillation type: paroxysmal Qualified Code(s): I48.0 - Paroxysmal atrial fibrillation (11) Guillain Lester syndrome: (12) Hyperlipemia: Qualifiers: Hyperlipidemia type: mixed hyperlipidemia Qualified Code(s): E78.2 - Mixed hyperlipidemia Plan Levothyroxine Sodium 100 mcg PO DAILY Metoprolol Succinate 25 mg PO DAILY Simvastatin 20 mg PO BEDTIME Enoxaparin Sodium 40 mg PO DAILY Pantoprazole Sodium 40 mg PO DAILY Lactobacillus Acidophilus 1 gm PO DAILY Polyethylene Glycol 17 gm PO DAILY Hydrocortisone Acetate 25 mg DC Q6H Zolpidem Tartrate 10 mg PO BEDTIME PRN Acetaminophen 500 mg PO Q6H PRN Magnesium Hydroxide 30 ml PO DAILY PRN Bisacodyl 10 mg DC DAILY PRN Discharge home for self care Fall Risk Details French Fall Scale Risk Level: Low Fall Risk Time Spent With Patient Time: Total time spent is greater than 50% in coordination of care (as documented) at patient's floor/unit and/or counseling patient:
== END 2024-10-24 10:43 | disposition home or self-care (01) ==
LOC: ED 10:53 → MS 10:53
PROVIDERS: ADMIT Family Medicine; ATTEND Family Medicine
DX: K21.00 Gastro-esophageal reflux disease with esophagitis, without bleeding; K56.609 Unspecified intestinal obstruction, unspecified as to partial versus complete obstruction; Z87.442 Personal history of urinary calculi; I10 Essential (primary) hypertension; Z88.2 Allergy status to sulfonamides; K56.41 Fecal impaction; Z88.7 Allergy status to serum and vaccine; E03.9 Hypothyroidism, unspecified; Z88.8 Allergy status to other drugs, medicaments and biological substances; Z79.890 Hormone replacement therapy; K62.3 Rectal prolapse; Z88.6 Allergy status to analgesic agent; E78.5 Hyperlipidemia, unspecified; K60.2 Anal fissure, unspecified; I70.0 Atherosclerosis of aorta; Z86.79 Personal history of other diseases of the circulatory system; Z95.818 Presence of other cardiac implants and grafts; Z79.899 Other long term (current) drug therapy; G61.0 Guillain-Barre syndrome; N81.10 Cystocele, unspecified